=== PATIENT | female | born 1935 | race Caucasian/White ===

== ENCOUNTER 2020-01-25 19:59 | Emergency (ER) | payer OTHER ==
[~2020-01-25] VITALS: Ht 160 cm; Wt 50.8 kg
[~2020-01-25 19:59] MED LIST: ASPIRIN325 PO; ATORVASTATIN CA40 MG PO; CALCIUM 500 +1 EAC5 PO; CARAFATE 1 GM TA1 G1; CVS FISH OIL 11 EAC3 PO; ENALAPRIL MALEA10 M1; ENALAPRIL MALEA20 MG PO; FEOSOL325 M1 PO; FIBER500 MG; IMDUR 60 MG TAB60 M1 PO; INHALER INH; LEVOTHYROXIN0.088 MG PO; LIALDA1.2 GM; METAMUCIL0.52 GM PO; MIRALAX255 GM PO; NORVASC10 MG PO; NORVASC5 MG; PRAVACHOL40 M1; PROBIOTIC1 EAC1 PO; PROTONIX40 M1 PO; SULFASALAZINE500 M4 PO; TOPROL XL25 MG; TOPROL XL50 MG PO; ZOFRAN4 MG PO
[2020-01-26 00:11] VITALS: BP 136/74
== END 2020-01-26 00:12 | disposition home or self-care (01) ==
LOC: ER 19:59
DX: S83.92XA Sprain of unspecified site of left knee, initial encounter (principal); I10 Essential (primary) hypertension; E78.5 Hyperlipidemia, unspecified; Z90.49 Acquired absence of other specified parts of digestive tract; Z79.82 Long term (current) use of aspirin; Z79.899 Other long term (current) drug therapy; Z87.891 Personal history of nicotine dependence; Z88.1 Allergy status to other antibiotic agents; W18.39XA Other fall on same level, initial encounter; Y93.89 Activity, other specified; Y92.89 Other specified places as the place of occurrence of the external cause; Y99.8 Other external cause status